=== PATIENT | female | born 1955 | race Caucasian/White ===

== ENCOUNTER 2017-11-30 06:25 | Day surgery (SDC) | payer BC ==
[2017-11-30] MEDS ORDERED: MIDAZOLAM 1 MG/ML 2 ML INJ ×2 (08:46)
[2017-11-30] MEDS ORDERED: FENTAnyl 50 MCG/ML VIAL (08:47)
== END 2017-11-30 11:15 | disposition home or self-care (01) ==
LOC: GIL 06:25
DX: Z12.11 Encounter for screening for malignant neoplasm of colon (principal); D12.5 Benign neoplasm of sigmoid colon; Z86.010 Personal history of colon polyps
CPT/HCPCS: 45380; 88305

== ENCOUNTER 2019-02-05 05:50 | Day surgery (SDC) | payer BC ==
[2019-02-05] MEDS ORDERED: MIDAZOLAM 1 MG/ML 2 ML INJ ×2 (08:22)
[2019-02-05] MEDS ORDERED: FENTAnyl 50 MCG/ML VIAL (08:23)
== END 2019-02-05 13:59 | disposition home or self-care (01) ==
LOC: GIL 05:50
DX: K29.30 Chronic superficial gastritis without bleeding (principal)
CPT/HCPCS: 43239; 88305; 88312